=== PATIENT | male | born 2000 | race Caucasian/White ===

== ENCOUNTER 2021-09-20 21:51 | Inpatient (IN) | payer OTHER ==
[~2021-09-20] VITALS: Ht 167.6 cm; Wt 63.1 kg
[2021-09-20] MEDS ORDERED: ONDANSETRON HCL 4 MG/2 ML VIAL IVP PRN ×2 (22:30)
[2021-09-20] MEDS ORDERED: 0.9% SODIUM CHLORIDE 10 ML SYRINGE IVP PRN (22:30)
[2021-09-20] MEDS ORDERED: POTASSIUM CHL 20 MEQ/D5-0.45NS 1,000 ML IV ONE (22:30)
[2021-09-20] MEDS ORDERED: SODIUM CHLORIDE 0.9% 1,000 ML IV ONE (22:30)
[2021-09-20 22:48] LABS: COVID AG,FIA SOURCE NASOPHARYNGEAL
[2021-09-20] MEDS: MORPHINE SULFATE 2 MG/ML SYRINGE IVP PRN (23:55)
[2021-09-21 00:13] VITALS: BP 129/74
[2021-09-21 01:47] VITALS: BP 129/74
[2021-09-21] MEDS: MORPHINE SULFATE 2 MG/ML SYRINGE IVP PRN ×5 (05:07→20:50)
[2021-09-21 06:52] LABS: BASOPHILS % (AUTO) 0.4 % (0.0-2.0); EOSINOPHILS % (AUTO) 2.1 % (1.0-6.0); HEMATOCRIT 41.2 % (41-53); HEMOGLOBIN 14.5 g/dL (13.5-17.5); LYMPHOCYTES # (AUTO) 3.8 K/uL (1.0-4.8); LYMPHOCYTES % (AUTO) 49.4 % (22.0-44.0); MEAN CORPUSCULAR HEMOGLOBIN 31.4 pg (26.0-34.0); MEAN CORPUSCULAR HGB CONC 35.3 G/dL (31.0-37.0); MEAN CORPUSCULAR VOLUME 89 fL (80-100); MONOCYTES # (AUTO) 0.5 K/uL (0.1-1.0); MONOCYTES % (AUTO) 6.1 % (2.0-9.0); NEUTROPHILS # (AUTO) 3.3 K/uL (1.8-7.7); PLATELET COUNT (AUTO) 214 K/uL (150-450); RED BLOOD CELL COUNT(AUTO) 4.64 MIL/uL (4.50-5.90); RED CELL DISTRIBUTION WIDTH 14.4 % (11.5-14.5)
[2021-09-21] MEDS ORDERED: DEXTROSE 5%-0.45% SODIUM CHL 1,000 ML IV PRN (07:00)
[2021-09-21 07:03] LABS: ALANINE AMINOTRANSFERASE 26 U/L (12-78); ALBUMIN 3.5 g/dL (3.4-5.0); ALKALINE PHOSPHATASE 73 U/L (46-116); ANION GAP 3 mmol/L (8-16); ASPARTATE AMINOTRANSFERASE 20 U/L (15-37); BILIRUBIN,TOTAL 0.5 mg/dL (0.1-1.0); CARBON DIOXIDE 34 mmol/L (22-29); CHLORIDE 106 mmol/L (98-107); CREATININE 0.95 mg/dL (0.60-1.30); GLOMERULAR FILTR. RATE CALC > 60 mL/min (>60); GLUCOSE,RANDOM 79 mg/dL (70-110); POTASSIUM 4.7 mmol/L (3.5-5.1); SODIUM SERUM 143 mmol/L (136-145); TOTAL PROTEIN, SERUM 6.2 g/dL (6.4-8.2); UREA NITROGEN, BLOOD 15 mg/dL (7-18)
[2021-09-21 07:42] VITALS: BP 110/57
[2021-09-21] MEDS: DOCUSATE SODIUM 100 MG CAPSULE PO SCH ×2 (08:33→20:38)
[2021-09-21] MEDS: PANTOPRAZOLE SODIUM 40 MG/VIAL IVP SCH (08:33)
[2021-09-21] MEDS ORDERED: PROPOFOL 1% 20 ML VIAL IVP ONE (12:00)
[2021-09-21] MEDS ORDERED: SODIUM CHLORIDE 0.9% 1,000 ML ONE (13:34)
[2021-09-21] MEDS ORDERED: ACETAMINOPHEN 1000 MG/ISO-OSM 0 ML IV ONE (14:59)
[2021-09-21] MEDS ORDERED: PEG 3350/NA SULF,BICARB,CL/KCL 4000 ML SOLUTION PO ONE (15:00)
[2021-09-21] MEDS ORDERED: ACETAMINOPHEN 325 MG TABLET ONE (15:02)
[2021-09-21] MEDS: ACETAMINOPHEN 325 MG TABLET PO PRN (15:06)
[2021-09-21 19:15] VITALS: BP 106/57
[2021-09-22 04:12] VITALS: BP 107/64
[2021-09-22] MEDS: MORPHINE SULFATE 2 MG/ML SYRINGE IVP PRN ×4 (04:34→18:25)
[2021-09-22 07:09] VITALS: BP 110/64
[2021-09-22] MEDS: DOCUSATE SODIUM 100 MG CAPSULE PO SCH ×2 (08:33→20:09)
[2021-09-22] MEDS: PANTOPRAZOLE SODIUM 40 MG/VIAL IVP SCH (08:33)
[2021-09-22 15:06] VITALS: BP 108/58
[2021-09-22 19:59] VITALS: BP 111/64
[2021-09-22 21:45] VITALS: BP 141/73
[2021-09-22] MEDS: ACETAMINOPHEN 325 MG TABLET PO PRN (22:22)
[2021-09-22 23:35] VITALS: BP 135/73
[2021-09-23 05:15] VITALS: BP 121/91
[2021-09-23] MEDS: ACETAMINOPHEN 325 MG TABLET PO PRN ×2 (05:43→19:39)
[2021-09-23] MEDS: PANTOPRAZOLE SODIUM 40 MG/VIAL IVP SCH (08:18)
[2021-09-23] MEDS: DOCUSATE SODIUM 100 MG CAPSULE PO SCH ×2 (08:18→19:39)
[2021-09-23 08:23] VITALS: BP 111/60
[2021-09-23] MEDS: MORPHINE SULFATE 2 MG/ML SYRINGE IVP PRN (14:18)
[2021-09-23 16:23] VITALS: BP 132/62
[2021-09-23 19:19] VITALS: BP 143/71
[2021-09-24] VITALS: BP 143/82
[2021-09-24] MEDS ORDERED: MELATONIN 3 MG TABLET PO PRN (00:15)
[2021-09-24 03:52] VITALS: BP 143/72
[2021-09-24] MEDS: ACETAMINOPHEN 325 MG TABLET PO PRN ×2 (05:41→09:59)
[2021-09-24] MEDS: PANTOPRAZOLE SODIUM 40 MG/VIAL IVP SCH (07:57)
[2021-09-24] MEDS: DOCUSATE SODIUM 100 MG CAPSULE PO SCH (07:58)
[2021-09-24 08:02] VITALS: BP 127/65
[2021-09-24] MEDS ORDERED: BusPIRone HCL 10 MG TABLET PO SCH (21:00)
[2021-09-24] MEDS ORDERED: MIRTAZAPINE 15 MG TABLET PO SCH (21:00)
== END 2021-09-24 14:53 | disposition left against medical advice (07) | DRG 395 ==
LOC: EMS 21:59 → 6S 23:00
PROVIDERS: ADMIT Internal Medicine; ATTEND Internal Medicine
PROC: 0DJ08ZZ Inspection of Upper Intestinal Tract, Via Natural or Artificial Opening Endoscopic (ICD-10-PCS; principal; 2021-09-21 14:30)
DX: T18.9XXA Foreign body of alimentary tract, part unspecified, initial encounter (principal); F12.90 Cannabis use, unspecified, uncomplicated; K44.9 Diaphragmatic hernia without obstruction or gangrene; Z20.822 Contact with and (suspected) exposure to COVID-19; F17.210 Nicotine dependence, cigarettes, uncomplicated; Z91.52 Personal history of nonsuicidal self-harm; Z81.3 Family history of other psychoactive substance abuse and dependence; Z79.899 Other long term (current) drug therapy; X58.XXXA Exposure to other specified factors, initial encounter; Y93.89 Activity, other specified; Y92.89 Other specified places as the place of occurrence of the external cause; Y99.8 Other external cause status
CPT/HCPCS: 74018; 74019; 80053; 85025; 87081; 99285; C9113; J0131; J2270; J2704; J7030; 36415-L1; 36415-TC

== ENCOUNTER 2023-05-09 11:13 | Emergency (ER) | payer MEDICAID, OTHER ==
[~2023-05-09] VITALS: Ht 165.1 cm; Wt 72.7 kg
[2023-05-09 11:16] VITALS: TEMP 98.6
[2023-05-09] MEDS ORDERED: TRAZ150T80 PO (11:22)
[2023-05-09] MEDS ORDERED: OLAN2.5T29 PO (11:22)
[2023-05-09] MEDS ORDERED: QUET25TA PO (11:22)
[2023-05-09] MEDS ORDERED: DIVA-85 PO (11:22)
[2023-05-09] MEDS ORDERED: BUSP15 PO (11:22)
[2023-05-09] MEDS ORDERED: RABIES VACCINE, HUMAN DIPLOID/PF 2.5 UNITS/ML VIAL IM. ONE (12:15)
[2023-05-09] MEDS ORDERED: RABIES IMMUNE GLOBULIN/PF 150 UNIT/ML 10 ML VIAL IM. ONE (12:15)
[2023-05-09 12:58] VITALS: BP 142/94; PULSE 89; RESP 18
== END 2023-05-09 13:24 | disposition home or self-care (01) ==
LOC: EMS 11:20
DX: S41.151A Open bite of right upper arm, initial encounter (principal); F41.9 Anxiety disorder, unspecified; F32.A Depression, unspecified; F17.210 Nicotine dependence, cigarettes, uncomplicated; F12.90 Cannabis use, unspecified, uncomplicated; W54.0XXA Bitten by dog, initial encounter; Y93.89 Activity, other specified; Y92.89 Other specified places as the place of occurrence of the external cause; Y99.8 Other external cause status
CPT/HCPCS: 90375; 90471; 90675; 96372; 99284

== ENCOUNTER 2025-04-23 11:46 | Emergency (ER) | payer OTHER ==
[~2025-04-23] VITALS: Ht 172.7 cm; Wt 85.0 kg
[~2025-04-23 11:46] MED LIST: BUSP15 PO; DIVA-85 PO; OLAN2.5T78 PO; QUET25TA PO; TRAZ150T80 PO
[2025-04-23] MEDS: ACETAMINOPHEN 500 MG TABLET PO ONE (13:03)
[2025-04-23 13:08] VITALS: BP 102/87; PULSE 80; RESP 18; TEMP 98.6; O2SAT 97
[2025-04-23] MEDS: IBUPROFEN 600 MG TABLET PO ONE (14:10)
== END 2025-04-23 14:14 ==
LOC: EMS 11:46
DX: S90.32XA Contusion of left foot, initial encounter (principal); Z91.018 Allergy to other foods; W01.0XXA Fall on same level from slipping, tripping and stumbling without subsequent striking against object, initial encounter; Y93.89 Activity, other specified; Y92.89 Other specified places as the place of occurrence of the external cause; Y99.8 Other external cause status
CPT/HCPCS: 99283